=== PATIENT | female | born 1970 | race Hispanic/Latino ===

== ENCOUNTER 2020-09-30 08:48 | Outpatient (CLI) | payer BC ==
--- NOTE | 2020-09-30 09:26 | Mammography Report ---
DIGITAL DIAGNOSTIC MAMMOGRAM WITH CAD CONVENTIONAL, 09/30/2020 CLINICAL INFORMATION / INDICATION: Patient presents for short interval follow-up following benign lef t breast ultrasound-guided biopsy in March 2020. ABNORMAL MAMMO TECHNIQUE: Digital left mammographic imaging was performed. This examination was interpreted with the benefit of Computer-aided Detection analysis. COMPARISON: Prior mammograms 04/08/2020 and 12/02/2019 FINDINGS: Breast Density: The breasts are heterogeneously dense, which may obscure small masses. No dominant mass, suspicious calcifications or architectural distortion in the left breast. There is a stable nodular focal asymmetric density in the posterior upper outer quadrant of the left breast with associated biopsy clip, at site of prior benign biopsy. There has been no significant marc nge compared with the prior examinations. IMPRESSION: 1. Stable nodular focal asymmetric density with associated biopsy clip in the left breast, at site of prior benign biopsy. There is no mammographic evidence of malignancy in the left breast. Follow up recommendation: Back to schedule. BI-RADS Category 2: Benign. A "normal" or negative report should not discourage follow up or biopsy of a clinically significant f inding. A written summary of these findings will be mailed to the patient. The patient will be entered into a mammography reporting system which will generate a reminder letter for the patient's next appointmen t at the appropriate interval. According to the [employer], yearly mammograms are recommended starting at age 40 and continuing as long as a woman is in good health. Breast MRI is recommended for women with an anu roximately 20-25% or greater lifetime risk of breast cancer, including women with a strong family his tory of breast or ovarian cancer and women who have been treated for Hodgkin's disease. Signer Name: Abena Sarabia MD Signed: 09/30/2020 9:22 AM Workstation Name: [id number]
== END 2020-09-30 08:49 | disposition home or self-care (01) ==
LOC: SPVWC 08:48
PROVIDERS: ATTEND Surgery
DX: N63.20 Unspecified lump in the left breast, unspecified quadrant (principal); R92.8 Other abnormal and inconclusive findings on diagnostic imaging of breast